=== PATIENT | male | born 1995 | race Caucasian/White ===

== ENCOUNTER 2018-09-25 23:58 | Emergency (ER) | payer OTHER ==
[~2018-09-25] VITALS: Ht 177.8 cm; Wt 77.3 kg
[2018-09-26 01:40] VITALS: BP 119/64
--- NOTE | 2018-09-26 08:10 | REP ---
Clinical: Trauma. Technique: AP, lateral, bilateral oblique views right hand . Findings: The osseous structures and joint spaces are intact and normal. There is no evidence for acute fracture or dislocation. Surrounding soft tissues are unremarkable. No subcutaneous emphysema or radiodense foreign body. Impression: Right hand series . No acute fracture or dislocation. Electronically Signed by Pee Mcgrath MD 09/26/2018 08:01 A
== END 2018-09-26 01:40 | disposition home or self-care (01) ==
LOC: M ED 23:58
DX: S60.221A Contusion of right hand, initial encounter (principal); W19.XXXA Unspecified fall, initial encounter; Y92.009 Unspecified place in unspecified non-institutional (private) residence as the place of occurrence of the external cause

== ENCOUNTER 2020-07-04 20:18 | Inpatient (IN) | payer OTHER ==
[~2020-07-04] VITALS: Ht 180.3 cm; Wt 82.1 kg
[2020-07-04] MEDS ORDERED: HALOPERIDOL 5MG/ML VIAL (J1630 PER 1) As Ordered ONE (20:21)
[2020-07-04] MEDS ORDERED: HALOPERIDOL 5MG/ML VIAL (J1630 PER 1) IM STA (20:22)
[2020-07-04] MEDS ORDERED: LORazepam 2 MG/ML VIAL As Ordered ONE (20:23)
[2020-07-04 20:45] LABS: BASO # 0.1 10^3/uL (0.0-0.2); BASO % 0.6 % (0.0-1.0); EOS # 0.8 10^3/uL (0.0-0.5); HEMATOCRIT 54.4 % (42.0-52.0); HEMOGLOBIN 18.4 g/dl (13.5-17.5); LYMPH # 2.8 10^3/uL (1.5-5.0); LYMPH % 28.5 % (24.0-44.0); MEAN CORPUSCULAR HGB CONC 33.8 g/dl (32.0-36.5); MEAN CORPUSCULAR VOLUME 91.7 fl (80.0-96.0); MONO # 0.5 10^3/uL (0.0-0.8); NEUTROPHILS # 5.6 10^3/uL (1.5-8.5); NEUTROPHILS % 57.7 % (36.0-66.0); PLATELET COUNT, AUTOMATED 318 10^3/uL (150-450); RED BLOOD COUNT 5.93 10^6/uL (4.30-6.10); WHITE BLOOD COUNT 9.7 10^3/uL (4.0-10.0)
[2020-07-04] MEDS ORDERED: LORazepam 2 MG/ML VIAL IV STA (20:54)
[2020-07-04 21:14] LABS: AMPHETAMINES LEVEL URINE NEGATIVE (NEGATIVE); BARBITURATES URINE NEGATIVE (NEGATIVE); BENZODIAZEPINES URINE NEGATIVE (NEGATIVE); CANNABINOIDS URINE NEGATIVE (NEGATIVE); COCAINE METABOLITE URINE NEGATIVE (NEGATIVE); METHADONE URINE NEGATIVE (NEGATIVE); OPIATES URINE NEGATIVE (NEGATIVE); PHENCYCLIDINE URINE NEGATIVE (NEGATIVE)
[2020-07-04 21:24] LABS: BLOOD UREA NITROGEN 16 MG/DL (7-18); CARBON DIOXIDE LEVEL 23 MEQ/L (21-32); CHLORIDE LEVEL 113 MEQ/L (98-107); CREATININE FOR GFR 1.25 MG/DL (0.70-1.30); GLOMERULAR FILTRATION RATE > 60.0 (>60); GLUCOSE, FASTING 89 MG/DL (70-100); POTASSIUM SERUM 4.7 MEQ/L (3.5-5.1); SODIUM LEVEL 145 MEQ/L (136-145)
[2020-07-04 21:25] LABS: ACETAMINOPHEN LEVEL < 2.0 UG/ML (10.0-30.0); ALBUMIN 4.5 GM/DL (3.2-5.2); ALT/SGPT 44 U/L (12-78); BILIRUBIN,DIRECT < 0.1 MG/DL (0.0-0.2); BILIRUBIN,TOTAL 0.2 MG/DL (0.2-1.0); CALCIUM LEVEL 9.9 MG/DL (8.5-10.1); CPK CREATINE PHOSPHOKINASE 277 U/L (39-308); ETHYL ALCOHOL (ETHANOL) 0.296 % (0.000-0.010); SALICYLATE LEVEL < 1.7 MG/DL (5.0-30.0); TOTAL PROTEIN 8.4 GM/DL (6.4-8.2)
--- NOTE | 2020-07-04 21:35 | REPVR ---
PROCEDURE INFORMATION: Exam: XR Chest, 1 View Exam date and time: 07/04/2020 8:34 PM Age: 24 years old Clinical indication: Drug overdose TECHNIQUE: Imaging protocol: XR of the chest Views: 1 view. COMPARISON: No relevant prior studies available. FINDINGS: Lungs: Unremarkable. No consolidation. No pulmonary edema. Pleural space: Unremarkable. No pleural effusion or pneumothorax is identified. Heart/Mediastinum: Unremarkable. No cardiomegaly. Bones/joints: Unremarkable. IMPRESSION: No acute findings. Electronically signed by: Willy You On 07/04/2020 21:35:49 PM
--- NOTE | 2020-07-04 23:49 | REPVR ---
PROCEDURE INFORMATION: Exam: CT Head Without Contrast Exam date and time: 07/04/2020 11:34 PM Age: 24 years old Clinical indication: Altered mental status/memory loss; Confusion or disorientation TECHNIQUE: Imaging protocol: Computed tomography of the head without contrast. Radiation optimization: All CT scans at this facility use at least one of these dose optimization techniques: automated exposure control; mA and/or kV adjustment per patient size (includes targeted exams where dose is matched to clinical indication); or iterative reconstruction. COMPARISON: No relevant prior studies available. FINDINGS: Brain: There is no evidence for an acute large vessel territorial infarct, intracranial hemorrhage, mass, mass effect, or herniation. The cortical gyration pattern, basal ganglia, thalami, brainstem, and cerebellum are normal in appearance. Cerebral ventricles: No ventriculomegaly. Bones/joints: Unremarkable. No acute fracture. Paranasal sinuses: There is mild opacification of the ethmoid sinuses. Mild mucosal thickening present of the base of the left maxillary sinus. The sinuses were not fully imaged. Mastoid air cells: Visualized mastoid air cells are well-aerated. Soft tissues: Unremarkable. IMPRESSION: No acute intracranial abnormality. Electronically signed by: Willy You On 07/04/2020 23:49:04 PM
[2020-07-05] MEDS ORDERED: LORazepam 2 MG/ML VIAL IV ONE (00:15)
--- NOTE | 2020-07-06 09:34 | ECGEPIP ---
[facility] - ED Test Date: 2020-07-04 Pat Name: VAN GALINDO Department: Room: - Gender: Male [employer] Systems Engineer: jean paul : 1995 Requested By: JEFF Guerrero Order Number: [id number] Reading MD: Preston Smith Measurements Intervals [place] Rate: 122 P: 66 VT: 160 QRS: 83 QRSD: 92 T: 20 QT: 329 QTc: 470 Interpretive Statements SINUS TACHYCARDIA NONSPECIFIC T-WAVE ABNORMALITY NO PRIORS FOR COMPARISON Electronically Signed on 07-06-2020 9:33:58 EST by Preston Smith
[2020-07-06] MEDS ORDERED: MAALOX 30 ML SUSP *UDC PO PRN (12:30)
[2020-07-06] MEDS ORDERED: OLANZapine ORAL DISINTEGRATING TAB 5MG PO PRN (12:30)
[2020-07-06] MEDS ORDERED: ACETAMINOPHEN TAB 650MG DOSE (2X325MG) PO PRN (12:30)
[2020-07-06] MEDS ORDERED: MOM 30ML SUSPENSION UDC PO PRN (12:30)
[2020-07-06 13:30] VITALS: BP 141/87
[2020-07-06 14:00] VITALS: BP 141/87
[2020-07-06] MEDS ORDERED: LORazepam 2 MG TAB PO PRN (15:00)
[2020-07-06] MEDS: MULTIVITAMINS/MINERALS THERAP 1 TAB PO SCH (15:08)
[2020-07-06] MEDS: THIAMINE 100 MG TAB PO SCH ×2 (15:08→22:10)
[2020-07-06] MEDS: FOLIC ACID 1 MG TAB PO SCH (15:08)
[2020-07-06] MEDS: traZODone 50 MG TAB PO PRN (22:10)
[2020-07-06 22:13] VITALS: BP 124/90
[2020-07-07 06:36] VITALS: BP 143/65
[2020-07-07 06:45] VITALS: BP 143/65
[2020-07-07] MEDS: FOLIC ACID 1 MG TAB PO SCH (09:12)
[2020-07-07] MEDS: THIAMINE 100 MG TAB PO SCH ×2 (09:12→20:12)
[2020-07-07] MEDS: MULTIVITAMINS/MINERALS THERAP 1 TAB PO SCH (09:12)
--- NOTE | 2020-07-07 10:41 | MHIPNPDOC ---
[facility] Progress Note Progress Note DATE OF SERVICE: 07/07/20 HISTORY: . VITAL SIGNS: See below. NEW TEST RESULTS: . CURRENT MEDICATIONS: See below. MENTAL STATUS EXAMINATION: Patient is a -year old male, who is . Speech: Is . Language skills are . Thought processes including: . Thought content: . Abstract reasoning, and computation: . Description of assoc iations: . Description of abnormal or psychotic thoughts: . Judgment: . Insight: [very limited, good, fair. poor]. Orientation: . Recent and remote memory: . Attention span and concentration: . Language: . Fund of knowledge: . Mood: . Affect: . DIAGNOSES: 1. . 2. . 3. . ASSESSMENT: MANAGEMENT PLAN: . TIME SPENT: minutes. Vital Signs Vital Signs Date Time Temp Pulse Resp B/P (MAP) Pulse Ox O2 Delivery O2 Flow Rate FiO2 07/07/20 06:45 98.4 94 16 143/65 (91) 07/06/20 13:30 100 Room Air Current Medications Current Medications Medications (Trade) Dose Ordered Sig/Natalia Route PRN Reason Start Time Stop Time Status Last Admin Dose Admin Acetaminophen (Tylenol Tab) 650 mg Q6HP PRN PO HEADACHE or DISCOMFORT 07/06/20 12:30 Al Hydrox/Mg Hydrox/Simethicone (Mylanta) 30 ml Q4HP PRN PO HEARTBURN/INDIGESTION 07/06/20 12:30 Folic Acid (Folic Acid) 1 mg DAILY PO 07/06/20 09:00 07/07/20 09:12 Haloperidol (Haldol) 10 mg STAT STAT IM 07/04/20 20:22 07/04/20 20:23 DC 07/04/20 20:24 Home Med (Med Rec Complete!) ASDIRECTED XX 07/05/20 17:00 07/05/20 16:55 DC Lorazepam (Ativan) 2 mg ASDIRECTED PRN PO SEE PROTOCOL 07/06/20 15:00 Lorazepam (Ativan) 2 mg STAT STAT IV 07/04/20 20:54 07/04/20 20:56 DC 07/04/20 20:24 Magnesium Hydroxide (Milk Of Magnesia) 30 ml DAILYPRN PRN PO CONSTIPATION 07/06/20 12:30 Multivitamins (Theragram-M) 1 tab DAILY PO 07/06/20 09:00 07/07/20 09:12 Olanzapine (ZyPREXA ZYDIS) 10 mg Q4HP PRN PO ANXIETY/AGITATION 07/06/20 12:30 Thiamine HCl (Thiamine HCl) 100 mg BID PO 07/06/20 09:00 07/09/20 08:59 07/07/20 09:12 Trazodone HCl (Desyrel) 50 mg QHSP PRN PO INSOMNIA 07/06/20 12:30 07/06/20 22:10 Allergies Coded Allergies: Penicillins (Verified Allergy, Severe, Anaphylaxis, 07/05/20) JACINDA CEDILLO DO Jul 07, 2020 10:41
--- NOTE | 2020-07-07 12:41 | MHHPEPDOC ---
[facility] History & Physical History and Physical DATE OF ADMISSION: Jul 06, 2020 at 12:22 HPI: He was admitted to the inpatient mental health unit after becoming intoxicated on alcohol and subsequently overdosing on Benadryl. He was brought in by his girlfriend who reported that he was quite distorted and had difficulties feeling quite upset in the setting of multiple stressors. Dash reports no prior psychiatric history, but does describe depression and anxiety brewing for several years prior, becoming worse over the past 6 months. He has no history of combat trauma. Dash also denies any inpatient admissions, suicide attempts, official diagnoses, or treatments in the form of medications or therapy.He describes having depression for the last several months, but can't identify any particular stressor that lead him to his action. MEDICAL HISTORY: as above, no previous history of suicide attempts, some reported gestures as a young teen. FAMILY HISTORY: He has a minor family history of depression. SOCIAL HISTORY - OCCUPATION: He currently lives with his on post. 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 SOCIAL HISTORY - SUBSTANCE USE: He denies any significant substances and reports he does not drink very often. TESTS: He screens negative for psychotic disorders or bipolar disorder. Objective Appearance: Well groomed. Appears to be stated age. Well nourished. Behavior: Cooperative with good eye contact. Engaged. Pleasant. Affect: Mildly dysthymic. Constricted mildly. Somewhat guarded. Mood: Appropriately reactive. Generally good. Euthymic. Speech: Normal rate. Spontaneous and Fluid. Normal volume. Motor: No gross motor abnormalities. Cognition: Alert, Attentive, and Oriented to person, place, time. Memory: No formal testing. No gross abnormalities of short or newscast producer memory noted during interview. Thought Form: Linear and goal directed. Thought Content: No evidence of aggressive or homicidal ideation. No thoughts of self harm. No evidence of delusions. No evidence of suicidal ideation. Perception: No perceptual abnormalities noted. Judgement: Poor to fair. Insight: Poor to fair. Assessment F33.8 Other recurrent depressive disorders F10.929 Alcohol use, unspecified with intoxication, unspecified Plan The risks, benefits as well as common side effects as well as alternative treatments (including non-treatment) were discussed with the patient both in general and for their particular case. The patient selected this option out of a range. Start sertraline 25 mg daily. He is having recurrent depression and likely would be best to begin treatment. Treatment priorities are: 1. Risk for suicide. 2. Substance use. Estimated length of stay is one to three days. Vital Signs Vital Signs Date Time Temp Pulse Resp B/P (MAP) Pulse Ox O2 Delivery O2 Flow Rate FiO2 07/07/20 06:45 98.4 94 16 143/65 (91) 07/06/20 13:30 100 Room Air Medications Scheduled Sertraline HCl (Sertraline HCl) 25 Mg Tablet, 25 MG PO DAILY for mood Allergies Coded Allergies: Penicillins (Verified Allergy, Severe, Anaphylaxis, 07/05/20) JACINDA CEDILLO DO Jul 07, 2020 12:41
[2020-07-07] MEDS ORDERED: SERTRALINE HCL 25 MG TABLET PO ONE (13:30)
[2020-07-07 16:31] VITALS: BP 135/65
[2020-07-07] MEDS: traZODone 50 MG TAB PO PRN (20:12)
[2020-07-08 07:19] VITALS: BP 98/62
[2020-07-08] MEDS: FOLIC ACID 1 MG TAB PO SCH (08:57)
[2020-07-08] MEDS: MULTIVITAMINS/MINERALS THERAP 1 TAB PO SCH (08:57)
[2020-07-08] MEDS: SERTRALINE HCL 25 MG TABLET PO SCH (08:57)
--- NOTE | 2020-07-08 10:39 | MHIPNPDOC ---
[facility] Progress Note Progress Note DATE OF SERVICE: 07/08/20 Subjective HPI: Dash presents today for his psych issues. The patient has met with today he reports that he is doing well without any significant problems. He reports that he feels much improved. The patient report that the Zoloft was helpful, and otherwise doesn't have any significant problems. Objective Appearance: Appears to be stated age. Well groomed. Well nourished. Behavior: Engaged. Pleasant. Cooperative with good eye contact. Affect: Full range. Appropriate to context. Mood: Generally good. Appropriately reactive. Euthymic. Speech: Normal rate. Normal volume. Spontaneous and Fluid. Motor: No gross motor abnormalities. Cognition: Alert, Attentive, and Oriented to person, place, time. Memory: No formal testing. No gross abnormalities of short or design studio consultant memory noted during interview. Thought Form: Linear and goal directed. Thought Content: No evidence of suicidal ideation. No thoughts of self harm. No evidence of aggressive or homicidal ideation. No evidence of delusions. Perception: No perceptual abnormalities noted. Judgement: Intact as evidenced by decision making in the recent past. Insight: Good insight into symptoms and treatment options. Assessment F43.20 Adjustment disorder, unspecified F10.929 Alcohol use, unspecified with intoxication, unspecified Plan Plan is to continue sertraline 25 mg daily. Plan for discharge tomorrow. Vital Signs Vital Signs Date Time Temp Pulse Resp B/P (MAP) Pulse Ox O2 Delivery O2 Flow Rate FiO2 07/08/20 07:19 98.0 60 16 98/62 (74) 07/06/20 13:30 100 Room Air Current Medications Current Medications Medications (Trade) Dose Ordered Sig/Natalia Route PRN Reason Start Time Stop Time Status Last Admin Dose Admin Acetaminophen (Tylenol Tab) 650 mg Q6HP PRN PO HEADACHE or DISCOMFORT 07/06/20 12:30 Al Hydrox/Mg Hydrox/Simethicone (Mylanta) 30 ml Q4HP PRN PO HEARTBURN/INDIGESTION 07/06/20 12:30 Folic Acid (Folic Acid) 1 mg DAILY PO 07/06/20 09:00 07/08/20 08:57 Haloperidol (Haldol) 10 mg STAT STAT IM 07/04/20 20:22 07/04/20 20:23 DC 07/04/20 20:24 Home Med (Med Rec Complete!) ASDIRECTED XX 07/05/20 17:00 07/05/20 16:55 DC Lorazepam (Ativan) 2 mg ASDIRECTED PRN PO SEE PROTOCOL 07/06/20 15:00 Cancel Lorazepam (Ativan) 2 mg STAT STAT IV 07/04/20 20:54 07/04/20 20:56 DC 07/04/20 20:24 Magnesium Hydroxide (Milk Of Magnesia) 30 ml DAILYPRN PRN PO CONSTIPATION 07/06/20 12:30 Multivitamins (Theragram-M) 1 tab DAILY PO 07/06/20 09:00 07/08/20 08:57 Olanzapine (ZyPREXA ZYDIS) 10 mg Q4HP PRN PO ANXIETY/AGITATION 07/06/20 12:30 Sertraline HCl (Zoloft) 25 mg DAILY PO 07/08/20 09:00 07/08/20 08:57 Thiamine HCl (Thiamine HCl) 100 mg BID PO 07/06/20 09:00 07/07/20 21:30 DC 07/07/20 20:12 Trazodone HCl (Desyrel) 50 mg QHSP PRN PO INSOMNIA 07/06/20 12:30 07/07/20 20:12 Allergies Coded Allergies: Penicillins (Verified Allergy, Severe, Anaphylaxis, 07/05/20) JACINDA CEDILLO DO Jul 08, 2020 10:39
[2020-07-08 16:45] VITALS: BP 136/74
[2020-07-08] MEDS: traZODone 50 MG TAB PO PRN (20:10)
[2020-07-09 06:45] VITALS: BP 121/57
[2020-07-09] MEDS: SERTRALINE HCL 25 MG TABLET PO SCH (08:55)
[2020-07-09] MEDS: MULTIVITAMINS/MINERALS THERAP 1 TAB PO SCH (08:55)
[2020-07-09] MEDS: FOLIC ACID 1 MG TAB PO SCH (08:56)
--- NOTE | 2020-07-09 11:13 | MHDSPDOC ---
[facility] Discharge Summary Discharge Summary DATE OF ADMISSION: Jul 06, 2020 at 12:22 DATE OF DISCHARGE:Jul 09, 2020 at 13:26 DISCHARGE DIAGNOSES: F43.25 Adjustment disorder with mixed disturbance of emotions and conduct CONSULTANTS INVOLVED:[ None (basic hospitalist screening)] REASON FOR ADMISSION & TREATMENT AND PROGRESS ON THE UNIT : He was admitted due to reportedly taking an overdose on Diphenhydramine while intoxicated. Patient was initially guarded when first met with. He improved well and became euthymic, pleasant, and cooperative throughout. Advanced safety planning was undertaken as he reported history of suicidal gestures. Treatment team was concerned about some of his risk factors. [place] his [place].Recommended to Behavioral Health to [place] him in the [place] a week to keep a close eye on him and put a weapons profile. He had engaged well with no suicidal thoughts, although could have benefited from a bit more treatment as he was not giving specifics that could justify involuntary admission. He was thus triage for discharge after advanced safety planning. MEDICATIONS: Patient started Zoloft 25 mg and it helped him improve. DISCHARGE ASSESSMENT[improved] Legal status considerations: The patient at the time of discharge did not meet criteria for involuntary admission/extension due to having a [normal] mental status exam, [fair] insight into the situation, They are engaged in the discharge process, as well as being friendly and amenable in behavioral control and havent been engaging in any observed concerning behavior or ideation recently. They decline voluntary extension/admission at this time and must be discharged in good trey, as Im unable to make a case for holding the patient against their will. They may have historical risk factors of admissions and other interactions with psychiatry however, those are not modifiable from a clinical perspective. The patient will need to be discharged in good trey. MENTAL STATUS EXAMINATION ON DISCHARGE: [General: Well dressed with good hygiene Speech: Spontaneous and fluid Thought processes: Linear and logical Thought content: Future orientated Abstract reasoning, and computation: Intact Description of associations: Intact Description of abnormal or psychotic thoughts:Denies any suicidal or homicidal ideation. Denies any auditory or visual hallucinations. Does not appear to be responding to internal stimuli. Does not appear to be endorsing any bizarre or paranoid ideation. Judgment: fair Insight: fair Orientation: Alert and orientated 3 Recent and remote memory: Intact Attention span and concentration: Intact Fund of knowledge: Adequate Mood: "okay" Affect: Euthymic with a full range] PLAN/FOLLOWUP ARRANGEMENTS: Follow up appointments made (PCP and MH in 5 days of D/C date) and safety plan completed. Safety Planning aspects completed prior to discharge [Medication supplies limited to 7 days with 4 refills to prevent accumulation to OD] [Family contact completed, educated on safe practices, instructed on removal and mitigation of dangerous means] as above for profile and housing The amount of time spent in the coordination of care for this patient was approximately 30 minutes. Vital Signs/I&Os Vital Signs Date Time Temp Pulse Resp B/P (MAP) Pulse Ox O2 Delivery O2 Flow Rate FiO2 07/09/20 08:08 Room Air 07/09/20 06:45 98.2 73 16 121/57 (78) 95 Medications Scheduled Sertraline HCl (Sertraline HCl) 25 Mg Tablet, 25 MG PO DAILY for mood for 7 Days, #7 Allergies Coded Allergies: Penicillins (Verified Allergy, Severe, Anaphylaxis, 07/05/20) JACINDA CEDILLO DO Jul 09, 2020 11:13
[2020-07-09] MEDS ORDERED: SERT25TA21 PO (11:27)
== END 2020-07-09 13:26 | disposition home or self-care (01) | DRG 882 ==
LOC: M ED 20:18 → M ED INP 07-06 12:22 → M PSY 07-06 13:18
PROVIDERS: ADMIT Psychiatry & Neurology Psychiatry; ATTEND Psychiatry & Neurology Addiction Medicine
DX: F43.25 Adjustment disorder with mixed disturbance of emotions and conduct (principal); F10.929 Alcohol use, unspecified with intoxication, unspecified; Z79.899 Other long term (current) drug therapy; Z88.0 Allergy status to penicillin

== ENCOUNTER 2020-10-06 09:22 | Emergency (ER) | payer OTHER ==
[~2020-10-06] VITALS: Ht 177.8 cm; Wt 96.8 kg
[~2020-10-06 09:22] MED LIST: SERT25TA21 PO
[2020-10-06] MEDS ORDERED: KETOROLAC TROMETHAMINE 10 MG TAB PO ONE (10:15)
[2020-10-06 10:44] LABS: BASO % 0.4 % (0.0-1.0); EOS # 0.5 10^3/uL (0.0-0.5); EOS % 5.4 % (0.0-3.0); HEMATOCRIT 48.2 % (42.0-52.0); LYMPH # 1.4 10^3/uL (1.5-5.0); LYMPH % 15.2 % (24.0-44.0); MEAN CORPUSCULAR HEMOGLOBIN 30.6 pg (27.0-33.0); MEAN CORPUSCULAR HGB CONC 33.2 g/dl (32.0-36.5); MEAN CORPUSCULAR VOLUME 92.2 fl (80.0-96.0); MONO # 0.7 10^3/uL (0.0-0.8); NEUTROPHILS # 6.7 10^3/uL (1.5-8.5); NEUTROPHILS % 71.3 % (36.0-66.0); PLATELET COUNT, AUTOMATED 370 10^3/uL (150-450); RED BLOOD COUNT 5.23 10^6/uL (4.30-6.10); WHITE BLOOD COUNT 9.4 10^3/uL (4.0-10.0)
[2020-10-06] MEDS ORDERED: NS 1,000 ML IV ONE (10:45)
--- NOTE | 2020-10-06 10:54 | REP ---
INDICATION: swelling and tenderness to palpation COMPARISON: None. TECHNIQUE: AP and lateral views of the right tibia/fibula. FINDINGS: Osseous structures are intact and relatively normal. No acute fracture or dislocation. Joint spaces are normal. Surrounding soft tissues are unremarkable. No subcutaneous emphysema or foreign body. IMPRESSION: Normal right tibia/fibula radiographs.. <Electronically signed by Pee Mcgrath > 10/06/20 [id number]
--- NOTE | 2020-10-06 10:56 | REP ---
INDICATION: swelling and tenderness to palpation COMPARISON: None. TECHNIQUE: AP and lateral views of the left scapula. FINDINGS: The osseous structures and joint spaces are intact and normal. There is no evidence for acute fracture or dislocation. Surrounding soft tissues are unremarkable. No subcutaneous emphysema or radiodense foreign body. IMPRESSION: Normal views of the left scapula. <Electronically signed by Pee Mcgrath > 10/06/20 [id number]
[2020-10-06 11:10] LABS: PARTIAL THROMBOPLASTIN TIME 25.2 SECONDS (24.2-38.5); PROTHROMBIN TIME 13.4 SECONDS (12.5-14.3)
[2020-10-06 11:14] LABS: ERYTHROCYTE SEDIMENTATION RATE 9 mm/hr (0-15)
[2020-10-06 11:36] LABS: ALT/SGPT 46 U/L (12-78); BILIRUBIN,DIRECT < 0.1 MG/DL (0.0-0.2); BILIRUBIN,TOTAL 0.6 MG/DL (0.2-1.0); C REACTIVE PROTEIN QUANTITATIV < 0.30 MG/DL (0.00-0.30); TOTAL PROTEIN 7.9 GM/DL (6.4-8.2)
--- NOTE | 2020-10-06 12:01 | REP ---
INDICATION: swelling, tenderness to lower left lateral leg. COMPARISON: Comparison radiographs October 06, 2020.. TECHNIQUE: Helical scanning is acquired and 2 mm axial images are generated. Coronal and sagittal MPR images are provided. The study is viewed at bone and soft tissue window settings. FINDINGS: There is no evidence of tibial or fibular fracture. Knee and ankle joint alignment is normal and intact. Subtalar joint is unremarkable. There is no localized periosteal reaction or endosteal marrow space lesion. The extraosseous soft tissues are radiographically unremarkable. IMPRESSION: Negative CT study of the right calf. No acute abnormality. <Electronically signed by El Bailey > 10/06/20 [id number]
[2020-10-06 12:45] VITALS: BP 147/73
== END 2020-10-06 12:55 | disposition home or self-care (01) ==
LOC: M ED 09:22
DX: R22.42 Localized swelling, mass and lump, left lower limb (principal); M54.9 Dorsalgia, unspecified; Z88.0 Allergy status to penicillin